=== PATIENT | male | born 1960 ===

== ENCOUNTER 2020-02-25 08:33 | Outpatient (RCR) | payer BC, SELFPAY | END 2020-02-29 23:59 | disposition home or self-care (01) | LOC: MPT 08:33 | PROVIDERS: PCP Family Medicine; Referring Provider Family Medicine; Visit Provider Family Medicine | DX: G57.00 Lesion of sciatic nerve, unspecified lower limb (principal) | CPT/HCPCS: 97110; 97140; 97161; 97530 ==

== ENCOUNTER 2020-03-01 06:00 | Outpatient (RCR) | payer BC, SELFPAY | END 2020-03-31 23:59 | disposition home or self-care (01) | LOC: MPT 06:00 | PROVIDERS: PCP Family Medicine; Referring Provider Family Medicine; Visit Provider Family Medicine | DX: G57.00 Lesion of sciatic nerve, unspecified lower limb (principal) | CPT/HCPCS: 97110; 97140 ==

== ENCOUNTER 2020-04-01 06:00 | Outpatient (RCR) | payer BC, SELFPAY | END 2020-04-30 23:59 | disposition home or self-care (01) | LOC: MPT 06:00 | PROVIDERS: PCP Family Medicine; Referring Provider Family Medicine; Visit Provider Family Medicine | DX: G57.00 Lesion of sciatic nerve, unspecified lower limb (principal) | CPT/HCPCS: 97110; 97140 ==

== ENCOUNTER 2020-05-01 06:00 | Outpatient (RCR) | payer BC, SELFPAY | END 2020-05-31 23:59 | disposition home or self-care (01) | LOC: MPT 06:00 | PROVIDERS: PCP Family Medicine; Referring Provider Family Medicine; Visit Provider Family Medicine | DX: G57.00 Lesion of sciatic nerve, unspecified lower limb (principal) | CPT/HCPCS: 97110 ==

== ENCOUNTER 2020-06-01 06:00 | Outpatient (RCR) | payer BC, SELFPAY | END 2020-06-30 23:59 | disposition home or self-care (01) | LOC: MPT 06:00 | PROVIDERS: PCP Family Medicine; Referring Provider Family Medicine; Visit Provider Family Medicine | DX: G57.00 Lesion of sciatic nerve, unspecified lower limb (principal) | CPT/HCPCS: 97110 ==

== ENCOUNTER 2021-09-08 06:00 | Outpatient (RCR) | payer BC, SELFPAY | END 2021-09-28 23:59 | disposition home or self-care (01) | LOC: MPT 06:00 | PROVIDERS: PCP Family Medicine; Referring Provider Family Medicine; Visit Provider Family Medicine | DX: M75.81 Other shoulder lesions, right shoulder (principal) | CPT/HCPCS: 97140; 97161 ==

== ENCOUNTER 2021-09-29 06:00 | Outpatient (RCR) | payer BC, SELFPAY | END 2021-10-29 23:59 | disposition home or self-care (01) | LOC: MPT 06:00 | PROVIDERS: PCP Family Medicine; Referring Provider Family Medicine; Visit Provider Family Medicine | DX: M75.81 Other shoulder lesions, right shoulder (principal) | CPT/HCPCS: 97110; 97140 ==